=== PATIENT | male | born 1945 | race Caucasian/White ===

== ENCOUNTER → 2023-09-01 10:48 | Outpatient (REF) | payer MEDICARE, SELFPAY ==
[2023-09-01 12:45] LABS: Free T4 0.82 ng/dl (0.78-2.19)
== END ==
LOC: OLABPV 10:48
PROVIDERS: ATTENDING PHYSICIAN Nurse Practitioner; FAMILY PHYSICIAN Internal Medicine
DX: G35 Multiple sclerosis (principal); E11.9 Type 2 diabetes mellitus without complications
CPT/HCPCS: 36415; 84439; 84443

== ENCOUNTER 2025-04-19 23:22 | Emergency (ER) | payer MEDICARE, SELFPAY ==
[2025-04-19 23:26] VITALS: BP 178/70
[2025-04-19 23:29] VITALS: BP 178/70
[2025-04-19 23:34] VITALS: BMI 22.2
[2025-04-19 23:55] LABS: Hematocrit 36.3 % (39.0-52.0); Hemoglobin 12.6 g/dL (13.0-18.0); Mean Corp Hgb Conc. 34.7 g/dL (33.0-37.0); Mean Corpuscular Volume 90.3 fL (80.0-94.0); Nucleated Red Blood Cells % 0 % (-); Platelet Count 149 10^3/uL (130-400); Red Cell Dist. Width 12.7 % (11.5-14.5)
[2025-04-20] VITALS: BP 189/71
[2025-04-20 00:11] LABS: ALT (SGPT) 20 U/L (0-50); AST (SGOT) 24 U/L (17-59); Albumin 4.7 g/dl (3.5-5.0); Alkaline Phosphatase 91 U/L (38-126); Blood Urea Nitrogen 38 mg/dl (9-20); Calcium 9.3 mg/dl (8.4-10.2); Carbon Dioxide 27 mmol/L (22-30); Chloride 104 mmol/L (98-107); Estimated Creatinine Clearance 33 ml/min; Glucose 175 mg/dl (70-99); Potassium 4.6 mmol/L (3.5-5.1); Sodium 138 mmol/L (135-145); Total Protein 7.6 g/dl (6.3-8.2); eGFR 38.05
[2025-04-20 01:00] VITALS: BP 183/65
[2025-04-20 01:56] LABS: COVID-19 Antigen Negative (Negative)
[2025-04-20 02:00] VITALS: BP 160/66
[2025-04-20] MEDS: TYLENOL 1000 MG PO (02:05)
[2025-04-20 02:10] LABS: Urine Character Clear (Clear)
[2025-04-20 02:26] LABS: Urine White Cell 21-25 /HPF (0-5)
[2025-04-20 02:27] LABS: Urine Squamous Cell 16-20 /LPF (Few)
[2025-04-20 03:00] VITALS: BP 140/66
--- NOTE | 2025-04-20 03:22 | ED.GENMED ---
Addendum entered and electronically signed by Ryan Hunter PA-C 04/23/25 12:08:
Patient's urine culture grew 100,000 CFU Enterococcus. Susceptible to Macrobid. Contacted patient who states he is feeling much better today. Prescription for Macrobid sent to pharmacy. Patient aware of return precautions.
Original Note:
History of Present Illness
General
Chief Complaint: Weakness
Source: patient, spouse and ambulance crew
Exam Limitations: none
Time Seen by Provider: 04/20/25 01:18
Nursing documentation reviewed up to this point in time: agreed with
History of Present Illness
History of Present Illness:
HISTORY OF PRESENT ILLNESS
The patient is a 80-year-old male who presented with complaints of a cough and fever. The cough has been persistent for nearly two weeks, but the fever, which reached 101�F, started around 9 PM tonight. The patient reports that the cough does not
produce sputum and that he experiences a significant nasal discharge, which he described as 'pouring.' The patient has not been around anyone sick, including grandchildren. He has a history of multiple sclerosis (MS) which affects his mobility,
requiring the use of a walker or cane, and contributes to urinary retention, requiring catheterization.
The patient mentions a history of urinary tract infections, with symptoms including burning and cloudy urine. He recently completed a five-day course of ciprofloxacin, concluding earlier this week. The patient also described sore throat symptoms
with post-nasal drip, but no difficulty swallowing. He has had no choking episodes. He denies recent vomiting or diarrhea and reports a good appetite.
The patient reported receiving both flu and COVID-19 vaccinations recently.
SOCIAL [employer]ERMINANTS AFFECTING HEALTH
The patient lives with his and mention mentions that tonight, he was unable to get up from the couch due to weakness and had to call security for assistance. He was unaware that he was running a fever until arrival to the ED.
Past History
Past History
ED Past Medical History: HTN, Hypercholesterolemia and Other (MS)
ED Past Surgical History: Orthopedic and Tonsilectomy
Social History
Tobacco: Non-smoker
Alcohol: Former
Drug: None
Personal:
Living: with family (Resides at [facility])
Employment: Retired
Family History
Family History: Other (Noncontributory)
Phy Exam
Physical Exam
Physical Exam:
GENERAL: 80-year-old gentleman appears his stated age, awake and alert, pleasant, easily communicative, appears in no acute distress. Intermittent brief dry cough is noted. No respiratory distress. is accompanying.
EYE: pupils equal and reactive. anicteric
NECK: Supple, nontender, no meningismus, no significant adenopathy.
ENT: posterior pharynx is without injection nor edema, scant clear postnasal drip is noted, oral mucosa is moist. TM clear b/l, nares patent with scant clear rhinorrhea.
CARDIAC: Regular rate and rhythm. no murmur.
LUNGS: Clear breath sounds bilaterally, no acute respiratory distress, no wheezes/rales/rhonchi
ABDOMEN: Soft, nondistended, without focal tenderness, no r/g, no cvat. normoactive BS.
NEUROLOGICAL: Alert and oriented x3, no focal neuro deficits. Motor strength is 5/5 bilaterally. Gross sensation is intact.
SKIN: Mildly hot to touch and dry, normal color, skin intact. No rash.
MUSCULOSKELETAL: No C/C/E. peripheral pulses are full and equal b/l. No palpable tenderness.
PSYCH: Normal and appropriate interaction.
Sepsis
Sepsis Screening
Sepsis Assessment: Sepsis Ruled Out
Sepsis Screen
Sepsis Screen: Sepsis Ruled Out
Date: 04/20/25
Time: 07:07
Course
Orders/Labs/Results
Orders:
Orders
04/19/25 23:41
Complete Blood Count/With Diff Urgent
Comprehensive Metabolic Panel Urgent
04/20/25 01:22
CR Chest - 2 Views Urgent
Comment:
Reason For Exam: cough x 2 weeks, gen weakness=fever tonight
04/20/25 01:33
Influenza A+B Rapid Molecular Urgent
[facility]URPHY Source: Nasal Swab
Specimen Description:
04/20/25 01:34
COVID-19 Antigen Urgent
Source: Nasal Swab
Lactic Acid Urgent
Urinalysis Reflex To Culture Urgent
Date Specimen was Collected: 04/20/25
Time Specimen was Collected: 01:33
Urine Microscopic Reflex Cult Urgent
Urine Culture Urgent
MURPHY Source: U
Specimen Description:
Date Specimen was Collected: 04/20/25
Time Specimen was Collected: 01:33
04/20/25 02:00
Acetaminophen [Tylenol] 1,000 mg .ROUTE .STK-MED ONE
04/20/25 02:04
Acetaminophen [Tylenol] 1,000 mg PO NOW STA
04/20/25 03:21
Oseltamivir Phosphate [Tamiflu] 30 mg PO NOW STA
Abnormal Lab Results
04/19/25 04/20/25
23:41 01:34
RBC 4.02 L 10^6/uL
(4.70-6.10)
Hgb 12.6 L g/dL
(13.0-18.0)
Hct 36.3 L %
(39.0-52.0)
MCH 31.3 H pg
(27.0-31.0)
MPV 10.7 H fL
(7.4-10.4)
Absolute Lymphs (auto) 0.4 L 10^3/uL
(1.2-3.4)
Neutrophils % 83.8 H %
(42.2-75.2)
Lymphocytes % 7.1 L %
(20.5-51.1)
BUN 38 H mg/dl
(9-20)
Creatinine 1.8 H mg/dL
(0.7-1.3)
Glucose 175 H mg/dl
(70-99)
Leukocyte Esterase Rfl 1+ A
(Negative)
Urine RBC 3-6 A /HPF
(0-2)
Urine WBC (Reflex) 21-25 A /HPF
(0-5)
Urine Bacteria (Reflex) Moderate A
(Negative)
Urine Glucose 2+ A
(Negative)
Urine Albumin (Reflex) 2+ A
(Neg - Trace)
04/19/25 23:41
04/19/25 23:41
Vital Signs
Initial and Last Documented VS:
Initial Vital Signs
Temp Pulse Resp BP Pulse Ox
101 F H 64 16 178/70 99
04/19/25 23:26 04/19/25 23:26 04/19/25 23:26 04/19/25 23:26 04/19/25 23:26
Last Documented Vital Signs
Temp Pulse Resp BP Pulse Ox
101 F H 63 16 144/67 95
04/19/25 23:26 04/20/25 04:00 04/20/25 04:00 04/20/25 04:00 04/20/25 04:00
MDM/Problems Addressed
Differential Diagnosis Includes:
DIFFERENTIAL DIAGNOSIS
The Differential Diagnosis includes, in no particular order and is not limited to:
1. Upper respiratory tract infection
2. Influenza
3. COVID-19
4. Bacterial pneumonia
5. Bronchitis
6. Allergic rhinitis
7. Post-nasal drip syndrome
8. Sinusitis
9. Chronic obstructive pulmonary disease exacerbation (unrelated but considered due to age)
10. Aspiration pneumonia
MDM/Problems Addressed:
PROBLEM LIST
Acute:
1. Fever
2. Cough with nasal discharge
Chronic:
1. Multiple sclerosis
2. Recurrent urinary tract infections
PLAN
1. Perform COVID-19 and influenza testing to rule out viral infections.
2. Conduct chest X-ray to assess for possible pulmonary involvement.
3. Send urine culture for analysis due to recent urinary symptoms and infection history.
4. Continue monitoring fever and provide acetaminophen for fever management.
5. Consider further evaluation if symptoms persist or worsen.
*Radiology
Radiology exam reviewed: preliminary read by ED provider (Chest x-ray is unremarkable. Clear lung [place].)
*Pulse Oximetry
SaO2: 93
Oxygen Mode of Delivery: Room air
Patient hypoxic: no
*Door Closer Interpretation
Rate: normal
Interpretation: normal
Rhythm: sinus
*Critical Care Note
Total Time (30-74mins, 75-104mins- exclusive of procedures): Not Applicable
Update Note
Update Note:
03:30
Rapid flu is positive for influenza A. COVID testing is negative.
Chest x-ray is unremarkable.
Urinalysis shows moderate bacteria but appears to be a contaminated specimen. Patient currently has no UTI symptoms and generally is aware of his UTI symptoms that generally include dysuria, cloudy and foul-smelling urine which has not been the
case over the past few days.
He does have some chronic kidney disease, creatinine generally runs 1.7-1.8. Will initiate Tamiflu, renally dosed 30 mg twice daily.
Recommend he continue to avoid NSAIDs, continue Tylenol every 4 hours as needed for fever. Stay well-hydrated on a daily basis.
After receiving Tylenol here he is feeling markedly improved. He believes he will be able to ambulate with a walker.
Will trial ambulation prior to discharge home with his .
ED Attending Note
-
Portions of this chart may have been created with voice recognition software.� Occasional wrong word or��sound alike� substitutions may have occurred due to the inherent limitations of voice recognition software.
Discharge Plan
Departure
Patient Disposition: Home (Routine Discharge)
Date of Disposition: 04/20/25
Time of Disposition: 03:23
Patient with high blood pressure during this ER visit?: No
Condition: Good
Discharge Problem:
Influenza A
Instructions: Flu in adults - ED (DC)
Prescriptions:
New
oseltamivir [Tamiflu] 30 mg capsule
30 mg PO BID 5 Days Qty: 10 0RF
No Action
metformin 500 MG tablet
1,000 mg PO BID@0800,1700
cyanocobalamin (vitamin B-12) 1,000 MCG tablet
1,000 mcg PO DAILY
gabapentin 300 MG capsule
300 mg PO BID
cholecalciferol (vitamin D3) 1,000 UNITS tablet
1,000 units PO DAILY
lisinopril 5 MG tablet
5 mg PO DAILY Qty: 30 0RF
acetaminophen [Tylenol] 325 MG capsule
650 mg PO Q6HPRN PRN (Reason: if fever >100.4F) Qty: 60 0RF
glimepiride 2 mg Tablet
2 mg PO DAILY
dalfampridine 10 mg Tablet Extended Release 12 Hr
10 mg PO Q12H
levothyroxine 100 mcg Capsule
100 mcg PO DAILY
vitamin B complex [B Complex-Vitamin B12] Tablet
1 tab PO DAILY
Cardiotropin
2 tab PO BID
Catalyn
1 tab PO BID
Drenatrophin
1 tab PO BID
Neuroplex
1 tab PO BID
Paraplex
1 tab PO
Pituitrophin
1 tab PO BID
Super-Eff
1 tab PO BID
aspirin 81 mg Tablet,Chewable
81 mg PO DAILY Qty: 30 0RF
cephalexin 500 mg capsule
500 mg PO BID 7 Days Qty: 14 0RF
rosuvastatin 40 mg capsule, sprinkle
40 mg PO DAILY Qty: 30 0RF
Referrals:
Mike Montero MD [Family Provider, Family Practice]
Interventions
Interventions:
*General Assessment Last Done: 04/19/25 23:26
*Neglect/Abuse Screening Last Done: 04/19/25 23:26
*ED COVID-19 Vaccine History Last Done: 04/19/25 23:34
*ED Influenza Vaccine History Last Done: 04/19/25 23:34
[facility] Fall Risk Assessment Tool Last Done: 04/19/25 23:34
*Risk Screen - Suicide (C-SSRS) Last Done: 04/19/25 23:34
*Nursing Disposition Last Done: 04/20/25 04:35
ED- Cardiac Assessment Last Done: 04/19/25 23:34
ED- Neurological Assessment Last Done: 04/19/25 23:34
ED- Pulmonary Assessment Last Done: 04/19/25 23:34
Discharge Date and Time
Discharge Date/Time: 04/20/25 04:35
Print Language: GABONESE
[2025-04-20 04:00] VITALS: BP 144/67
[2025-04-20] MEDS: TAMIFLU 30 MG PO (04:16)
== END 2025-04-20 04:35 | disposition home or self-care (01) ==
LOC: EMR 23:22
PROVIDERS: EMERGENCY PHYSICIAN Emergency Medicine; FAMILY PHYSICIAN Family Medicine
DX: J10.1 Influenza due to other identified influenza virus with other respiratory manifestations (principal); I12.9 Hypertensive chronic kidney disease with stage 1 through stage 4 chronic kidney disease, or unspecified chronic kidney disease; N18.9 Chronic kidney disease, unspecified; R53.1 Weakness; Z20.822 Contact with and (suspected) exposure to COVID-19; Z87.440 Personal history of urinary (tract) infections; R05.9 Cough, unspecified
CPT/HCPCS: 99284; 71046; 80053; 81003; 81015; 83605; 85025; 87077; 87086; 87186; 87502; 87811